=== PATIENT | female | born 1990 | race Two or more races ===

== ENCOUNTER 2024-12-17 12:36 | Emergency (ER) | payer MEDICAID, SELFPAY ==
[2024-12-17 13:09] VITALS: BP 118/79; PULSE 90; RESP 18; TEMP 36.9; O2SAT 98
--- NOTE | 2024-12-17 13:21 | EDNOTE_ITS ---
<Statement entered by Adelina Eagle MD - 01/02/25 06:23> As co-signing physician, I was present and available for consult prn. I concur with the plan and care as documented by the midlevel provider. ED Back Injury Pain RME/HPI General Chief Complaint: Back Pain/Injury Stated Complaint: Lower back pain X3 days Time Seen by Provider: 12/17/24 12:47 Arrival date/time: 12/17/24 12:36 This is a 34-year-old female that comes into the emergency room with complaints of lower back pain for the last 3 days. Patient was seen at the clinic yesterday and was given an injection she does not remember what it was she stated helped her pain a little bit but it did not take the pain completely away. Patient was prescribed gabapentin by her primary provider 100 mg and per patient this has not helped her. Patient denies numbness tingling. Patient denies any trauma. Patient denies falls. Patient states that she did have an MRI of lower back in the past. Patient states that she has had her tubes tied in the past. Related Data Previous Rx's ?Medication ?Instructions ?Recorded acetaminophen 325 mg capsule 975 mg (3 x 325 mg) PO Q6 H PRN 12/09/19 pain #30 caps cyclobenzaprine 10 mg tablet 10 mg PO HS #14 tabs 12/02 10/26 cyclobenzaprine 10 mg tablet 10 mg PO HS PRN muscle sp asm #14 12/17/24 tabs ibuprofen 800 mg tablet 800 mg PO Q6H PRN pain #14 t abs 12/17/24 ibuprofen 800 mg tablet 800 mg PO Q6H PRN pain #20 t abs 12/17/24 Allergies Allergy/AdvReac Type Severity Reaction Status Date / Time No Known Allergies Allergy Verified 12/17/24 12:42 Review of Systems Review of Systems Systems Reviewed: All systems reviewed, normal except as documented Past Medical History Past Medical History CARDIAC: Negative Congestive Heart Failure RESPIRATORY: Negative Chronic Obstructive Pulmonary Disease (COPD) GENITOURINARY: Negative Renal Disease ENDOCRINE: Negative Diabetes Mellitus Type 1 or Diabetes Mellitus Type 2 Social History SMOKING STATUS: Never smoker ED Exam Narrative Physical exam: VITAL SIGNS: Reviewed. GENERAL APPEARANCE: Alert and interactive, follows commands, no acute distress, HEAD AND FACE: Non-traumatic. ENT: PERRL, conjuctiva pink and clear, eyelid no trauma, Mucous membrane moist. NECK: Supple, nontender, no nuchal rigidity. CHEST: No tenderness, no crepitus, no paradoxical movement, no retractions. LUNGS: Clear, well ventilated, symmetric, no rales, no wheezing, no rhonchi, no stridor, good breath sounds bilaterally. HEART: Regular rate, regular rhythm, no murmur, no gallops. ABDOMEN: Soft, nondistended, no guarding, nontender NEUROLOGICAL: Gross motor function intact sensory function intact, Appropriate for age. MUSCULOSKELETAL: low back nontender, full range of motion. EXTREMITIES: No redness no swelling no skin breakdown on bilateral foot and leg. Distal neurovascular status intact bilateral foot SKIN: Color pink, dry, no rash, no lacerations, no abrasions, no contusions. Course Quality Measures none Orders Category Date Time Status CBC Stat Lab 12/17/24 15:02 Completed Comprehensive Metabolic Panel Stat Lab 12/17/24 15:02 Completed HCG Qualitative,Urine Stat Lab 12/17/24 14:24 Completed Urinalysis, C/S if Indicated Stat Lab 12/17/24 14:24 Completed Urine Culture Stat Lab 12/17/24 14:24 Completed CYCLObenzaPRINE [Flexeril] Med 12/17/24 15:47 Discontinued 5 mg PO X1 ONE HYDROcodone*/APAP 5/325 [[place] 5/325] Med 12/17/24 15:46 Discontinued 1 tab PO X1 ONE Ketorolac Inj [Toradol Inj] Med 12/17/24 15:46 Discontinued 60 mg IM X1 ONE Ondansetron Odt [Zofran Odt] Med 12/17/24 15:46 Discontinued 4 mg PO X1 ONE cefTRIAXone [Rocephin] 1,000 mg Med 12/17/24 15:47 Discontinued Lidocaine 1% 20 ml [Xylocaine 1% 20 ML] 2.1 ml IM X1 Vital Signs Vital signs: Vital Signs Temperature 98.5 F 12/17/24 13:09 Pulse Rate 90 12/17/24 13:09 Respiratory Rate 18 12/17/24 13:09 Blood Pressure 118/79 12/17/24 13:09 Pulse Oximetry (%) 98 12/17/24 13:09 Oxygen Delivery Method Room Air 12/17/24 13:09 Back Pain / Injury MDM Narrative MDM Narrative:: Urine positive for UTI. Will treat patient with the Rocephin shot and send patient home with antibiotics. Patient complain of a lot of back pain will give patient a Toradol shot here and a dose of [place]. Will send patient home with a muscle relaxant and ibuprofen. Patient told to follow-up with primary provider in 1 to 2 days. Back to the emergency room symptoms change or worsen. Will send a urine culture and patient to follow-up with urine culture. Dragon dictation: Although this document has been carefully reviewed, there may still be some phonetic and other typographical errors. These errors are purely grammatical due to imperfections in the software program and should not be construed in any way to compromise the substance of the patient's medical care during this visit. Patient data External records reviewed:: [facility] previous records Clinical information provided by:: patient Social determinants that could affect healthcare access:: none Patient has the following chronic illnesses:: None How is presenting disease/condition affected by chronic disease/condition?: no chronic disease Evaluation data The following diagnostics were reviewed and interpreted by me:: lab results Lab and/or radiology exams considered but not ordered:: None Interpretation Summary: See note Medications / Prescriptions Medications or Prescriptions considered but not ordered:: None Medication administrations:: Medication Administration History Discontinued Medications Hydrocodone Bitart/Acetaminophen (Hydrocodone/Apap 5/325 Tablet) 1 tab PO X1 ONE Stop: 12/17/24 15:47 Last Admin: 12/17/24 16:02 Dose: 1 tab Documented By: EF Ceftriaxone Sodium 1,000 mg/ (Lidocaine HCl 2.1 ml) 0 mg IM X1 ONE Stop: 12/17/24 15:48 Last Admin: 12/17/24 16:04 Dose: 1,000 mg Documented By: EF Cyclobenzaprine HCl (Cyclobenzaprine 5 Mg Tablet) 5 mg PO X1 ONE Stop: 12/17/24 15:48 Last Admin: 12/17/24 16:03 Dose: 5 mg Documented By: EF Ketorolac Tromethamine (Ketorolac Inj 60 Mg/2 Ml Vial) 60 mg IM X1 ONE Stop: 12/17/24 15:47 Last Admin: 12/17/24 16:04 Dose: 60 mg Documented By: EF Ondansetron HCl (Ondansetron Odt 4 Mg Tabrap) 4 mg PO X1 ONE; Protocol Stop: 12/17/24 15:47 Last Admin: 12/17/24 16:03 Dose: 4 mg Documented By: EF See MAR Consultations Consultation(s) initiated? (list below): No Diagnosis Most likely diagnosis given after review of the tests above:: UTI Admission Indicated Admission indicated?: not indicated Admission Request Was there a request for admission?: No Disposition Plan Disposition Plan: Discharge Discharge Attestation Discharge Attestation: The patient and all family members were given an opportunity to ask questions and understood the discharge instructions. Discharge instructions specifically effects, indications for sooner follow up or return to the emergency department, and the expected course of current diagnosis. Patient condition: Stable Discharge Plan Plan Patient Disposition: HOME (Self Care) Patient condition on transfer: Stable Prescriptions/Referrals Prescriptions/Med Rec: New ibuprofen 800 mg tablet 800 mg PO Q6H PRN (Reason: pain) Qty: 14 0RF cyclobenzaprine 10 mg tablet 10 mg PO HS PRN (Reason: muscle spasm) Qty: 14 0RF ibuprofen 800 mg tablet 800 mg PO Q6H PRN (Reason: pain) Qty: 20 0RF cyclobenzaprine 10 mg tablet 10 mg PO HS Qty: 14 0RF No Action acetaminophen 325 mg capsule 975 mg PO Q6H PRN (Reason: pain) Qty: 30 0RF Referrals: No Primary/Family,Physician [Primary Care Provider] - In 1 week Problem List Clinical Impression: UTI (urinary tract infection), Hematuria, Back pain Patient/Caregiver Discharge Instructions Discharge Activity: activity as tolerated Education Materials: ED Back Pain (Acute or Chronic), ED CYSTITIS Female Adult Additional Instructions: Follow up with primary provider in 1-2 days. Come back to ED if symptoms change or worsen Print Language: Georgian Stand Alone Forms: Rachael Award Info., Patient Portal Info Letter ELOY/KISHAN Supervising Physician ELOY/KISHAN Supervising Physician: [email or web address]
[2024-12-17 14:30] LABS: Collection Type, Urine Voided
[2024-12-17 14:39] LABS: HCG Qualitative,Urine Negative
[2024-12-17 14:41] LABS: Bacteria,Urine 1+; Bilirubin,Urine Negative (Negative); Blood,Urine 1+ (Negative); Color,Urine Lt-Yellow (Lt Yel-Yel); Glucose, Urine Negative (Negative); Ketones,Urine Negative (Negative); Leukocyte Esterase,Urine Positive (Negative); Nitrite,Urine Negative (Negative); PH,Urine 6.0 (5.0-7.0); Protein,Urine Negative (Neg - Trace); RBC,Urine 4 /hpf (0-3); Specific Gravity,Urine 1.017 (1.001-1.035); Squamous Epithelial Cell,Urine 4 /hpf (0-5); Urobilinogen,Urine Negative mg/dL (0.0-1.0); WBC,Urine 7 /hpf (0-5)
[2024-12-17 14:44] LABS: Clarity,Urine Hazy (Clear/Hazy); Culture Indicated,Urine Yes
[2024-12-17 15:17] LABS: Basophils # (Auto) 0.0 Thou/mm3 (0.0-0.2); Basophils % (Auto) 0 % (0-2.5); Eosinophils # (Auto) 0.1 Thou/mm3 (0.0-0.5); Eosinophils % (Auto) 1 % (0-10); Hematocrit 41.2 % (36.0-46.0); Hemoglobin 13.2 g/dL (12.0-16.0); Immature Granulocytes Auto 0.01 Thou/mm3 (0.00-0.00); Lymphocytes # (Auto) 2.4 Thou/mm3 (1.0-4.8); Lymphocytes % (Auto) 31 % (10-50); Mean Corpuscular HGB Conc 32.0 g/dl (31.0-37.0); Mean Corpuscular Hemoglobin 29.4 pg (25.0-35.0); Mean Corpuscular Volume 92 fL (80-100); Monocytes # (Auto) 0.6 Thou/mm3 (0.0-0.8); Monocytes % (Auto) 8 % (0-12); Neutrophils # (Auto) 4.7 Thou/mm3 (1.8-7.7); Neutrophils % (Auto) 60 % (37-80); Nucleated Red Blood Cell # 0.00 Thou/mm3 (0.00-0.00); Nucleated Red Blood Cell % 0 /100 WBC (0); Platelet Count 250 Thou/mm3 (140-440); RDW Standard Deviation 42.7 fL (36.4-46.3); Red Blood Count 4.49 Miln/mm3 (4.00-5.20); White Blood Count 7.8 Thou/mm3 (3.6-11.0)
[2024-12-17 15:34] LABS: Alanine Aminotransferase 13 U/L (10-49); Albumin, Serum 4.4 gm/dL (3.5-5.0); Albumin/Globulin Ratio 1.5 (1.2-2.2); Alkaline Phosphatase 60 U/L (46-116); Anion Gap 11 (7-16); Aspartate Amino Transferase 16 U/L (0-34); BUN/Creatinine Ratio 22 Ratio (12-20); Bilirubin,Total 0.3 mg/dL (0.3-1.2); Blood Urea Nitrogen 13 mg/dL (9-23); Calcium 9.7 mg/dL (8.3-10.6); Calcium (Corrected) 9.7 mg/dL (8.5-10.1); Carbon Dioxide 23.5 mMol/L (20.0-31.0); Chloride 106 mMol/L (98-107); Creatinine (Component) 0.6 mg/dL (0.6-1.3); Globulin 3.0 gm/dL (2.3-3.5); Glucose 83 mg/dL (74-106); Osmolality,Calculated 278 (275-295); Potassium 4.6 mMol/L (3.4-5.1); Sodium 140 mMol/L (136-145); Total Protein 7.4 gm/dL (5.7-8.2); eGFR > 60 See Note
[2024-12-17] MEDS: HYDROcodone/APAP 5/325 TABLET 1 TAB PO (16:02)
[2024-12-17] MEDS: ONDANSETRON ODT 4 MG TABRAP PO (16:03)
[2024-12-17] MEDS: cefTRIAXone 1,000 MG, LIDOCAINE 1% 20 ML 2.1 ML IM (16:04)
[2024-12-17] MEDS: KETOROLAC INJ 60 MG/2 ML VIAL IM (16:04)
== END 2024-12-17 18:20 | disposition home or self-care (01) ==
PROVIDERS: Nurse Practitioner Family; Emergency Provider Emergency Medicine
DX: N39.0 Urinary tract infection, site not specified (principal); M54.50 Low back pain, unspecified
CPT/HCPCS: 36415; 80053; 81001; 81025; 85025; 87086; 96372; 99283; J0696; J1885; J3490; Q0162; A9270